=== PATIENT | male | born 1970 | race Caucasian/White ===

== ENCOUNTER → 2018-10-10 | Outpatient (CLI) | payer OTHER | END | disposition home or self-care (01) | LOC: LABWHC1 10:00 | PROVIDERS: ATTEND Surgery | DX: Z01.812 Encounter for preprocedural laboratory examination (principal); K43.9 Ventral hernia without obstruction or gangrene; F17.200 Nicotine dependence, unspecified, uncomplicated; D64.9 Anemia, unspecified | CPT/HCPCS: 86850; 86900; 86901 ==

== ENCOUNTER 2018-10-17 05:54 | Day surgery (SDC) | payer OTHER ==
[2018-10-16 11:55] VITALS: BMI 37.8
[~2018-10-17 05:54] MED LIST: DEXAMETHASONE SOD PHOSPHATE 10 MG/ML 1 ML VIAL IV ONE; HEPARIN SODIUM,PORCINE 5,000 UNIT/ML 1 ML VIAL SQ ONE; LACTATED RINGERS 1,000 ML IV SCH; LIDOCAINE 1% 20 ML VIAL (10MG/ML) FOR IV START INTRADERMA PRN; MIDAZOLAM 2 MG/2 ML VIAL IV PRN; ceFAZolin IN SWFI 2 GM/20 ML SYRINGE IVP ONE; fentaNYL (PF) 50 MCG/ML 2 ML AMP IV PRN
[2018-10-17] MEDS ORDERED: ONDANSETRON 4 MG/2 ML VIAL IVP ONE (06:41)
[2018-10-17] MEDS ORDERED: SCOPOLAMINE 1.5MG/72HR PATCH TRANSDERM ONE (06:42)
[2018-10-17] MEDS ORDERED: BUPIVACAIN-EPI 0.25%-1:200,000 30 ML VIAL SQ ONE ×3 (07:38→09:18)
--- NOTE | 2018-10-17 07:51 | P.GSHP ---
History of Present Illness H&P Date: 10/17/18 Chief Complaint: incisional hernia Patient here today for repair incisional hernia. Patient had previous umbilical hernia in the past. Mild pain at that location. Increasing in size. Nonreducible. Past Medical History Past Medical History: No Reported History History of Any Multi-Drug Resistant Organisms: None Reported Past Surgical History: Hernia Repair Past Anesthesia/Blood Transfusion Reactions: Motion Sickness Past Psychological History: No Psychological Hx Reported Smoking Status: Former smoker Past Alcohol Use History: Occasional Additional Past Alcohol Use History / Comment(s): smoker for 10 years <5 cig/d quit 2016 Past Drug Use History: None Reported - Past Family History Mother Family Medical History: No Reported History Medications and Allergies Home Medications Medication Instructions Recorded Confirmed Type No Known Home Medications 10/16/18 10/16/18 History Allergies Allergy/AdvReac Type Severity Reaction Status Date / Time latex Allergy Rash/Hives Verified 10/16/18 11:48 Surgical - Exam Vital Signs Temp Pulse Resp BP Pulse Ox 98.8 F 93 18 157/80 94 L 10/17/18 06:39 10/17/18 06:39 10/17/18 06:39 10/17/18 06:39 10/17/18 06:39 Physical exam: General: Well-developed, well-nourished HEENT: Normocephalic, sclerae nonicteric Abdomen: Nontender, nondistended, incarcerated hernia just above the umbilicus, previous scar at umbilicus Extremities: No edema Neuro: Alert and oriented Assessment and Plan (1) Incisional hernia Narrative/Plan: Will proceed with operative repair incarcerated incisional hernia with possible mesh at this time. Risks of bleeding, infection, recurrence, bladder and bowel injury, numbness, nerve injury, conversion to an open procedure were discussed with the patient. The patient understands and wishes to proceed. Current Visit: Yes Status: Acute Code(s): K43.2 - INCISIONAL HERNIA WITHOUT OBSTRUCTION OR GANGRENE SNOMED Code(s): 802561312
[2018-10-17] MEDS ORDERED: PHENYLEPHRINE-0.9% NACL SYG 1 MG/10 ML SYRINGE ONE (08:09)
[2018-10-17] MEDS ORDERED: NEOSTIGMINE 1 MG/ML 10 ML VIAL ONE (08:09)
[2018-10-17] MEDS ORDERED: fentaNYL (PF) 50 MCG/ML 2 ML AMP ONE (08:09)
[2018-10-17] MEDS ORDERED: LIDOCAINE 1% INJ 10MG/ML (20 ML MDV) ONE (08:09)
[2018-10-17] MEDS ORDERED: MIDAZOLAM 2 MG/2 ML VIAL ONE (08:09)
[2018-10-17] MEDS ORDERED: SUCCINYLCHOLINE CHLORIDE 100 MG/5 ML SYR IV ONE (08:09)
[2018-10-17] MEDS ORDERED: VECURONIUM 10 MG VIAL IV ONE (08:09)
[2018-10-17] MEDS ORDERED: PROPOFOL 10 MG/ML 20 ML VIAL IV ONE (08:09)
[2018-10-17] MEDS ORDERED: GLYCOPYRROLATE 0.2 MG/ML 2 ML VIAL ONE (08:09)
[2018-10-17] MEDS ORDERED: HYDROcodone/APAP 5-325MG 1 EACH TAB PO PRN (09:31)
[2018-10-17] MEDS ORDERED: NALOXONE 0.4 MG/ML 1 ML VIAL IV PRN (09:31)
[2018-10-17 09:41] VITALS: RESP 16; TEMP 98
--- NOTE | 2018-10-17 09:48 | P.OP ---
Date of Procedure: 10/17/18 Procedure(s) Performed: PREOPERATIVE DIAGNOSIS: Incarcerated ventral hernia POSTOPERATIVE DIAGNOSIS: Same PROCEDURE: Repair incarcerated ventral hernia with mesh SURGEON: Boone EBL: 10 mL ANESTHESIA: Gen. COMPLICATIONS: None OPERATIVE PROCEDURE: Placed in the operating table in the supine position. The patient's abdomen was prepped and draped in usual sterile fashion. A vertical umbilical incision was made extending down to the right side of the umbilicus. Dissection through the subcutaneous tissues took place using watch cautery. The patient had a large incarcerated ventral hernia present 3 cm above the umbilicus. An additional small defect was seen inferior and lateral to that. These were all incorporated into one larger opening. The hernia sac was excised. The preperitoneal space was dissected using electrocautery and blunt dissection. The patient's umbilicus was elevated off the fascia. The previous repair at the umbilicus itself appeared intact. A 6.4 cm ventral ex mesh was placed in the pre-peroneal space. This was sutured circumferentially using trans-fascial 0 Ethibond sutures. The defect was then closed at the level of the fascia using [id number] 0 Ethibond sutures and a horizontal fashion. The subcutaneous tissues were closed using 3-0 Vicryl sutures. The skin was closed using 4-0 Monocryl sutures. Skin glue and sterile dressings were applied. DISPOSITION: Stable to recovery room
[2018-10-17] MEDS ORDERED: HYDROmorphone 1 MG/ML 1 ML SYRINGE IVP ONE (10:12)
[2018-10-17 12:24] VITALS: BP 129/77; PULSE 97
== END 2018-10-17 12:15 | disposition home or self-care (01) ==
LOC: OR 05:54
PROVIDERS: ATTEND Surgery
DX: K43.6 Other and unspecified ventral hernia with obstruction, without gangrene (principal); E66.9 Obesity, unspecified; Z91.040 Latex allergy status; Z87.891 Personal history of nicotine dependence; Z68.37 Body mass index [BMI] 37.0-37.9, adult
CPT/HCPCS: 86900; 86901; 86850; 88302; 49561; 49568; C1781; J2250; J1644; J1100; J2710; J2405; J2001; J3010; J1170; J2370; J0330; J2704; J0690

== ENCOUNTER 2021-01-04 12:10 | Day surgery (SDC) | payer OTHER ==
[2021-01-04 13:12] VITALS: BP 143/82; PULSE 94; RESP 16; TEMP 97.7
--- NOTE | 2021-01-04 13:14 | US ---
Discontinued paracentesis HISTORY: Ascites, weight loss Scanning performed in all 4 quadrants within the abdomen No evident fluid for drainage IMPRESSION: Aborted paracentesis
== END 2021-01-04 13:10 | disposition home or self-care (01) ==
LOC: RADPROMAIN 12:10
PROVIDERS: ATTEND Internal Medicine Gastroenterology
DX: R18.8 Other ascites (principal)
CPT/HCPCS: 76705

== ENCOUNTER 2024-03-13 12:42 | Day surgery (SDC) | payer OTHER ==
[2024-03-12 10:32] VITALS: BMI 40.8
[~2024-03-13 12:42] MED LIST changes: -DEXAMETHASONE SOD PHOSPHATE 10 MG/ML 1 ML VIAL IV ONE; -HEPARIN SODIUM,PORCINE 5,000 UNIT/ML 1 ML VIAL SQ ONE; -LACTATED RINGERS 1,000 ML IV SCH; +LIDOCAINE 1% (10MG/ML) FOR IV START INTRADERMA PRN; -LIDOCAINE 1% 20 ML VIAL (10MG/ML) FOR IV START INTRADERMA PRN; -ceFAZolin IN SWFI 2 GM/20 ML SYRINGE IVP ONE; -fentaNYL (PF) 50 MCG/ML 2 ML AMP IV PRN
[2024-03-13 14:17] VITALS: TEMP 98.8
[2024-03-13] MEDS: IV FLUID CONTINUATION 1,000 ML IV ONE (14:25)
[2024-03-13] MEDS: LACTATED RINGERS 1,000 ML IV SCH (14:25)
[2024-03-13] MEDS ORDERED: PROPOFOL 10 MG/ML 20 ML VIAL IV ONE (15:19)
[2024-03-13] MEDS ORDERED: LIDOCAINE 1% INJ 10MG/ML (20 ML MDV) ONE (15:19)
[2024-03-13 15:56] VITALS: BP 147/89; PULSE 92; RESP 17
--- NOTE | 2024-03-13 16:26 | P.PCN ---
Date of Procedure: 03/13/24 Procedure(s) Performed: BRIEF HISTORY: Patient is a 53-year-old pleasant white male scheduled for an elective colonoscopy as a part of screening for colon cancer/positive Cologuard PROCEDURE PERFORMED: Colonoscopy with snare polypectomy PREOPERATIVE DIAGNOSIS: Screening for colon cancer/positive Cologuard. IV sedation per Anesthesia. PROCEDURE: After informed consent was obtained, the patient, was brought into the endoscopy unit. IV sedation was administered by Anesthesia under continuous monitoring. Digital rectal examination was normal. Initially the Olympus CF-160 flexible video colonoscope was then inserted in the rectum, gradually advanced into the cecum without any difficulty. Careful examination was performed as the scope was gradually being withdrawn. Ileocecal valve and the appendiceal orifice were visualized and appeared normal. Prep was excellent. Mucosa of the cecum, had a 7 mm flat polyp that was removed by snare polypectomy. Rest of the ascending colon, transverse colon, descending colon, sigmoid colon, and rectum appeared normal. Retroflexion was performed in the rectum and no lesions were seen. The patient tolerated the procedure well. IMPRESSION: 7 mm flat cecal polyp status post polypectomy Rest of the colon appeared normal RECOMMENDATIONS: Findings of this examination were discussed with the patient as well as his family.. To follow-up with the biopsy results. If the biopsy reveals adenoma he can have repeat colonoscopy 5 years.
== END 2024-03-13 16:10 | disposition home or self-care (01) ==
LOC: ORWHC2ENDO 12:42
PROVIDERS: ATTEND Internal Medicine Gastroenterology
DX: K63.5 Polyp of colon (principal); E66.01 Morbid (severe) obesity due to excess calories; F10.90 Alcohol use, unspecified, uncomplicated; Z79.899 Other long term (current) drug therapy; Z87.891 Personal history of nicotine dependence; Z91.040 Latex allergy status
CPT/HCPCS: 88305; 45385; J2001; J2704